=== PATIENT | male | born 1975 | race Caucasian/White ===

== ENCOUNTER 2017-03-06 19:01 | Emergency (ER) | payer OTHER ==
[~2017-03-06] VITALS: Ht 182.9 cm; Wt 74.8 kg
[~2017-03-06 19:01] MED LIST: ACET325 PO; AMLO10 PO; CEPH500 PO; CHLO25 PO; CYCL10 PO; Calcium Carbon500 M1 PO; Cerovite Advan1 EACH PO; DIVA500EC; DULO30; Desyrel50 MG PO; ESCI20; HYDPAM25 PO; HYDR1TAB94 PO; HYDRA25 PO; IBUP600 PO; IBUP800 PO; LEVSOD25; LEVSOD50 PO; LOSA50 PO; LOSARTAN POTAS100 MG PO; Norco 10-325 T1 EACH PO; OLME20; OMEP20ER; OXYACE5T PO; OXYC5 PO; PANT40; PROM25 PO; Percocet 5-3251 EACH PO; Perphenazine16 MG; QUET25; Robaxin500 MG PO; SERT100 PO; Seroquel100 MG PO; TRAZ50 PO; Vistaril50 MG PO; [UNRECOGNIZED DRUG - REMARK]
[2017-03-06 19:24] LABS: BASOPHILS ABSOLUTE AUTO 0.02 K/mm3 (0.00-0.23); BASOPHILS PERCENT AUTO 0 % (0-2); EOSINOPHILS ABSOLUTE AUTO 0.15 K/mm3 (0.00-0.68); EOSINOPHILS PERCENT AUTO 2 % (0-6); Hematocrit 37.1 % (37.0-53.0); Hemoglobin 12.7 g/dL (13.5-17.5); IMMATURE GRAN ABSOLUTE AUTO 0.03 K/mm3 (0.00-0.10); IMMATURE GRAN PERCENT AUTO 0 % (0-1); LYMPHOCYTES ABSOLUTE AUTO 3.29 K/mm3 (0.84-5.20); LYMPHOCYTES PERCENT AUTO 44 % (21-46); MONOCYTES ABSOLUTE AUTO 0.73 K/mm3 (0.16-1.47); MONOCYTES PERCENT AUTO 10 % (4-13); Mean Corpuscular HGB 30.6 pg (26.0-34.0); Mean Corpuscular HGB Conc 34.2 g/dL (31.5-36.5); Mean Corpuscular Volume 89 fL (80-100); Mean Platelet Volume 9.4 fL (9.1-12.4); NEUTROPHILS ABSOLUTE AUTO 3.31 K/mm3 (1.96-9.15); NEUTROPHILS PERCENT AUTO 44 % (41-73); Platelet Count 294 K/mm3 (150-400); RDW Standard Deviation 46.3 fL (35.1-46.3); Red Blood Cell Count 4.15 M/mm3 (4.30-5.90); White Blood Cell Count 7.53 K/mm3 (4.00-11.30)
[2017-03-06 19:24] LABS: PCO2 Arterial 35.8 mmHg (35-45); PO2 Arterial 366 mmHg (80-100); pH Blood Arterial 7.36 (7.35-7.45)
[2017-03-06 19:38] LABS: Alanine Aminotransfer (ALT/SGP 103 U/L (12-78); Albumin, Blood 3.7 g/dL (3.4-5.0); Alk Phos 89 U/L (50-136); Anion Gap 10 mmol/L (6-16); Aspartate Aminotrans (AST/SGOT 119 U/L (12-37); Bilirubin, Total 0.4 mg/dL (0.1-1.0); Blood Urea Nitrogen 10 mg/dL (8-24); Bun/Creatinine Ratio 11.8 (12.0-20.0); CO2, Blood 23 mmol/L (21-32); Calcium, Blood 8.8 mg/dL (8.5-10.1); Chloride, Blood 108 mmol/L (98-108); Creatinine, Blood 0.85 mg/dL (0.60-1.20); Ethanol (Alcohol), Blood, Med 196 mg/dL; Globulin, Blood 3.6 g/dL (2.2-4.0); Glomerular Filtration Rate >60 (60-); Glucose, Blood 98 mg/dL (70-99); International Normalized Ratio 1.07; Potassium, Blood 2.9 mmol/L (3.5-5.5); Prothrombin Time Results 11.2 Sec (9.7-11.5); Sodium, Blood 141 mmol/L (136-145); Total Protein, Blood 7.3 g/dL (6.4-8.2)
[2017-03-06 20:44] LABS: Bilirubin, Urine Neg (Neg); Blood, Urine 2+ (Neg); Glucose Qualitative, Urine Neg (Neg); Ketones, Urine Neg (Neg); Leukocyte Esterase, Urine Neg (Neg); Nitrite, Urine Neg (Neg); Protein, Urine Neg (Neg); Specific Gravity, Urine 1.005 (1.003-1.022); Urobilinogen, Urine NORM (Normal)
[2017-03-06 20:51] LABS: Appearance, Urine Clear (Clear); Color, Urine Yellow (P-Yellow)
[2017-03-06 20:54] LABS: Bacteria Rare /hpf; Red Blood Cells, Urine 0-2 /hpf (0-2); Squamous Epithelial Cells Not Seen /hpf (Few); White Blood Cells, Urine Not Seen /hpf (0-5)
[2017-03-06 20:58] LABS: U Amphetamine Screen Not Detected; U Barbituate Screen Not Detected; U Benzodiazapine Screen Not Detected; U Buprenorphine Screen Not Detected; U Cannabinoids Screen Not Detected; U Cocaine Screen Not Detected; U Methadone Screen Not Detected; U Methamphetamine Screen Not Detected; U Opiates Screen Not Detected; U Oxycodone Screen Not Detected; U Phencyclidine Screen Not Detected; U Propoxyphene Screen Not Detected
== END 2017-03-06 21:28 | disposition short-term general hospital (02) ==
LOC: ER 19:01 → EDBD 19:01 → ER 19:01
PROVIDERS: Internal Medicine
DX: S06.9X9A Unspecified intracranial injury with loss of consciousness of unspecified duration, initial encounter (principal); R40.2432 Glasgow coma scale score 3-8, at arrival to emergency department; S01.81XA Laceration without foreign body of other part of head, initial encounter; S01.01XA Laceration without foreign body of scalp, initial encounter; S61.412A Laceration without foreign body of left hand, initial encounter; S22.32XA Fracture of one rib, left side, initial encounter for closed fracture; S12.500A Unspecified displaced fracture of sixth cervical vertebra, initial encounter for closed fracture; S12.600A Unspecified displaced fracture of seventh cervical vertebra, initial encounter for closed fracture; S82.302B Unspecified fracture of lower end of left tibia, initial encounter for open fracture type I or II; S82.102B Unspecified fracture of upper end of left tibia, initial encounter for open fracture type I or II; S82.832B Other fracture of upper and lower end of left fibula, initial encounter for open fracture type I or II; V03.90XA Pedestrian on foot injured in collision with car, pick-up truck or van, unspecified whether traffic or nontraffic accident, initial encounter; I10 Essential (primary) hypertension; F31.9 Bipolar disorder, unspecified; F32.9 Major depressive disorder, single episode, unspecified; E03.9 Hypothyroidism, unspecified; F15.10 Other stimulant abuse, uncomplicated; F16.10 Hallucinogen abuse, uncomplicated; F12.10 Cannabis abuse, uncomplicated; R09.02 Hypoxemia; Y92.410 Unspecified street and highway as the place of occurrence of the external cause; Z88.0 Allergy status to penicillin; Z88.2 Allergy status to sulfonamides; Z79.899 Other long term (current) drug therapy
CPT/HCPCS: 12005; 31500; 31720; 36600; 51702; 70450; 71010; 71260; 72125; 72170; 73551; 73590; 73620; 74177; 80053; 81001; 82803; 83690; 85025; 85610; 85730; 86850; 86900; 86901; 86920; 90471; 94002; 99291; 99292; G0390; G0480; J2250; J7120; Q9967